=== PATIENT | male | born 1950 | race Caucasian/White ===

== ENCOUNTER 2016-12-29 08:03 | Emergency (ER) | payer OTHER ==
--- NOTE | 2016-12-29 08:09 | UCPHY ---
H & P Patient Type: New HPI/ROS: HPI CHIEF COMPLAINT: Cough, congestion, wheezing HISTORY OF PRESENT ILLNESS: This patient very pleasant 66-year-old male significant past medical history for asthma, presents to the urgent care by private vehicle for shortness of breath cough, congestion, and wheezing. Patient tells me that the past week he has been sick with chills, productive cough with green sputum and wheezing is worse at night. He has significant past medical history for asthma however has never been intubated does not wear oxygen. Does not smoke. Tells me he has had intermittent nights over the past week he has done okay but persistently having a cough and now it is change productive. Denies any fever last 48 hours. Past Medical History: Asthma Past Surgical History: Denies significant surgical history Social History: Denies daily use drugs alcohol tobacco products Family History: Noncontributory ROS REVIEW OF SYSTEMS: A comprehensive 10 point review of systems is otherwise negative aside from elements mentioned in the history of present illness. Exam Constitutional appears well, nontoxic no distress, triage nursing summary reviewed, vital signs reviewed, awake/alert. Eyes normal conjunctivae and sclera, EOMI, PERRLA. HENT normal inspection, atraumatic, moist mucus membranes, no epistaxis, neck supple/ no meningismus, no raccoon eyes. Respiratory decreased breath sounds bilaterally, bronchitic sounding cough, wheezing bilaterally, no rhonchi or crackles , no distress, no tachypnea Cardiovascular rate normal, regular rhythm, no murmur, no edema, distal pulses normal. Gastrointestinal soft, non-tender, no rebound, no guarding, normal bowel sounds, no distension, no pulsatile mass. Genitourinary no CVA tenderness. Musculoskeletal no midline vertebral tenderness, full range of motion, no calf swelling, no tenderness of extremities, no meningismus, good pulses, neurovascularly intact. Skin pink, warm, & dry, no rash, skin atraumatic. Neurologic awake, alert and oriented x 3, AAOx3, moves all 4 extremities equally, motor intact, sensory intact, CN II-XII intact, normal cerebellar, normal vision, normal speech. Psychiatric normal mood/affect. Heme/Lymph/Immune no lymphadenopathy. Differential Diagnosis:Includes includes but is not limited to in a particular order, acute bronchitis, asthma exacerbation, pneumonia, pneumothorax, CHF Medical Decision Making: This patient had a two view chest x-ray to rule out significant pneumonia, patient will receive a DuoNeb breathing treatment and prednisone 60 mg here in the urgent care. I will re-evaluate. Re-evaluation: ED x-ray chest two view: Negative for acute cardiopulmonary disease. Image interpreted myself specifically no focal pneumonia. Time of re-evaluation: 850AM The patient is resting comfortably here, feels much better after DuoNeb breathing treatment. Room air saturation 97% no tachypnea. Wheezing has greatly improved good air movement. He feels comfortable being discharged. Prescription for prednisone, azithromycin, guaifenesin and Parsons for cough. New albuterol inhaler. He understands return to the urgent care or emergency room if develops worsening shortness of breath, wheezing cough congestion high fever vomiting or questions or concerns. Source: Patient - Family History Significant Family History: No pertinent family hx Constitutional: Initial Vital Signs Temperature (C) 36.6 C 12/29/16 08:12 Heart Rate 89 12/29/16 08:12 Respiratory Rate 18 12/29/16 08:12 Blood Pressure 164/86 H 12/29/16 08:12 O2 Sat (%) 92 12/29/16 08:12 O2 Delivery Mode Room Air Allergies/Adverse Reactions: No Known Allergies Allergy (Unverified 12/29/16 08:11) Home Medications: Medication Instructions Recorded AZITHROMYCIN [Z-PACK] 250 mg PO DAILY #6 tab 12/29/16 Albuterol 12/29/16 Albuterol [Proventil Inhaler HFA 1 - 2 puffs IH Q4H #1 mdi 12/29/16 (*)] Alpurnal 12/29/16 Guaifenesin [Guaifenesin ER] 600 mg PO BID #14 tab.er.12h 12/29/16 Hydrocodone/APAP 5/325 [Parsons 1 - 2 tab PO Q4H PRN #10 tab 12/29/16 5/325] Zopinex 12/29/16 predniSONE 60 mg PO DAILY #15 tab 12/29/16 Departure - Departure Disposition: Home, Routine, Self-Care Clinical Impression: Bronchitis Condition: Good Instructions: Asthma (ED), Acute Bronchitis (ED) Additional Instructions: 1. Drink lots of fluids stay well-hydrated 2. return to the urgent care or emergency room if develops worsening shortness of breath, cough, high fever he do not feel well. Referrals: Cristhian Montoya MD [Primary Care Provider] - As per Instructions Prescriptions: Albuterol [Proventil Inhaler HFA (*)] 1 - 2 puffs IH Q4H #1 mdi AZITHROMYCIN [Z-PACK] 250 mg PO DAILY #6 tab Guaifenesin [Guaifenesin ER] 600 mg PO BID #14 tab.er.12h Hydrocodone/APAP 5/325 [Parsons 5/325] 1 - 2 tab PO Q4H PRN #10 tab PRN Reason: Pain, Moderate predniSONE 60 mg PO DAILY #15 tab - PQRS PQRS Measurement: n/a
[2016-12-29 08:15] VITALS: RESP 18; TEMP 98
[2016-12-29] MEDS ORDERED: IPRATROPIUM/ALBUTEROL 3 ML DEYVIAL IH ONE (08:21)
[2016-12-29] MEDS ORDERED: predniSONE 20 MG TAB PO ONE (08:21)
[2016-12-29] MEDS ORDERED: ALBUTEROL 3 ML DEYVIAL ONE (08:57)
[2016-12-29] MEDS ORDERED: ALBUTEROL 3 ML DEYVIAL IH ONE (09:04)
[2016-12-29 09:36] VITALS: BP 124/96; PULSE 95; O2SAT 97
== END 2016-12-29 09:29 | disposition home or self-care (01) ==
LOC: CED 08:03
DX: J40 Bronchitis, not specified as acute or chronic (principal)
CPT/HCPCS: 71020-PO; 99204-PO; G0463-PO

== ENCOUNTER → 2017-08-17 | Outpatient (CLI) | payer MEDICARE, OTHER ==
[~2017-08-17] MED LIST: GADOBUTROL 10 ML VIAL IVP ONE
== END ==
LOC: FIMAGING 07:43
PROVIDERS: ATTEND Family Medicine
DX: R97.20 Elevated prostate specific antigen [PSA] (principal); M25.451 Effusion, right hip; M25.452 Effusion, left hip
CPT/HCPCS: 72197; 76377; A9585

== ENCOUNTER → 2017-09-18 | Outpatient (CLI) | payer OTHER | LOC: FIMAGING 10:01 | PROVIDERS: ATTEND Family Medicine | DX: M48.062 Spinal stenosis, lumbar region with neurogenic claudication (principal); M51.36 Other intervertebral disc degeneration, lumbar region; M46.96 Unspecified inflammatory spondylopathy, lumbar region; M51.35 Other intervertebral disc degeneration, thoracolumbar region; M48.04 Spinal stenosis, thoracic region ==

== ENCOUNTER → 2017-09-25 | Day surgery (SDC) | payer OTHER ==
[~2017-09-25] MED LIST changes: -GADOBUTROL 10 ML VIAL IVP ONE; +IOPAMIDOL (ISOVUE-M 300) 15 ML VIAL ONE; +TRIAMCINOLONE ACETONIDE 200 MG/5 ML MDV IM ONE
--- NOTE | 2017-09-25 17:48 | PDRADPN ---
Radiology Procedure Note Date of Procedure: 09/25/17 Radiologist: Holly Santoyo Anesthesia: Local (Specify) (lidocaine) Pre-op Diagnosis: severe back pain Post-op Diagnosis: same Indication: same Procedure: L3-4 ALEJANDRO Finding(s): reproduction of pain Inf/Abcess present in the surg proc area at time of surgery?: No EBL: Minimal Complications: None
== END | disposition home or self-care (01) ==
LOC: FIMAGING 15:37
PROVIDERS: ATTEND Family Medicine
PROC: 3E0R33Z Introduction of Anti-inflammatory into Spinal Canal, Percutaneous Approach (ICD-10-PCS; principal; 2017-09-25)
PROC: 3E0R3BZ Introduction of Anesthetic Agent into Spinal Canal, Percutaneous Approach (ICD-10-PCS; principal; 2017-09-25)
DX: M54.16 Radiculopathy, lumbar region (principal)
CPT/HCPCS: J3301; Q9967

== ENCOUNTER → 2017-12-26 | Day surgery (SDC) | payer OTHER ==
[~2017-12-26] MED LIST changes: +LIDOCAINE 1% 300 MG/30 ML SDV ONE
== END | disposition home or self-care (01) ==
LOC: FIMAGING 13:46
PROVIDERS: ATTEND Neurological Surgery
DX: M48.062 Spinal stenosis, lumbar region with neurogenic claudication (principal); M54.40 Lumbago with sciatica, unspecified side; M41.26 Other idiopathic scoliosis, lumbar region
CPT/HCPCS: J3301; Q9967

== ENCOUNTER → 2018-01-31 | Outpatient (CLI) | payer OTHER | LOC: FIMAGING 11:52 | PROVIDERS: ATTEND Physical Medicine & Rehabilitation Neuromuscular Medicine | DX: S33.140A Subluxation of L4/L5 lumbar vertebra, initial encounter (principal); M41.56 Other secondary scoliosis, lumbar region ==

== ENCOUNTER 2018-02-05 13:06 | Outpatient (CLI) | payer OTHER ==
[2018-02-05] MEDS ORDERED: DEXAMETHASONE 10 MG/ML VIAL ONE (14:08)
[2018-02-05] MEDS ORDERED: LIDOCAINE 1% 300 MG/30 ML SDV ONE (14:46)
[2018-02-05] MEDS ORDERED: IOPAMIDOL (ISOVUE-M 300) 15 ML VIAL ONE (14:46)
== END 2018-02-05 15:15 | disposition home or self-care (01) ==
LOC: FIMAGING 13:06
PROVIDERS: ATTEND Family Medicine
PROC: 3E0S33Z Introduction of Anti-inflammatory into Epidural Space, Percutaneous Approach (ICD-10-PCS; principal; 2018-02-05)
PROC: 3E0S3BZ Introduction of Anesthetic Agent into Epidural Space, Percutaneous Approach (ICD-10-PCS; principal; 2018-02-05)
PROC: BR19YZZ Fluoroscopy of Lumbar Spine using Other Contrast (ICD-10-PCS; principal; 2018-02-05)
DX: M48.062 Spinal stenosis, lumbar region with neurogenic claudication (principal); M41.26 Other idiopathic scoliosis, lumbar region; M54.40 Lumbago with sciatica, unspecified side
CPT/HCPCS: J1100; Q9967

== ENCOUNTER 2018-07-16 05:44 | Day surgery (SDC) | payer OTHER ==
[2018-07-16] MEDS ORDERED: LR 1,000 ML IV ONE (06:03)
[2018-07-16] MEDS ORDERED: LIDOCAINE 1% 2 ML INJ ID PRN (06:03)
[2018-07-16] MEDS ORDERED: ceFAZolin 2 GM/DEXTROSE 100 ML IV ONE (06:41)
--- NOTE | 2018-07-16 06:46 | SOAPPROG ---
SOAP Progress Note Assessment/Plan: HISTORY AND PHYSICAL: Name ZINA MONTILLA (68yo, M) ID# [id number] 1950 Service Dept. MAIN OFFICE Provider CAMERON TURPIN M.D. Insurance Med Primary: [facility] (MEDICARE REPLACEMENT/ADVANTAGE - HMO) Insurance # : [id number] Policy/Group # : [id number] Prescription: ORX - Member is eligible. details Patient presents today to review his right shoulder MRI to evaluate for concomitant rotator cuff tear. Patient doing well but has constent discomfort in right shoulde. Symptoms have increase in his left shoulder since last visit. Patient's Care Team Primary Care Provider: TORI SULLIVAN DO: [id number] [facility] [address], [place] [address], , Patient's Pharmacies [facility] #[id number] (ERX): [address] [facility] [address], [facility] [id number], Ph , Vitals None recorded. Allergies Reviewed Allergies NKDA Reviewed Medications Advair Diskus 100 mcg-50 mcg/dose powder for inhalation 02/07/17 filled [facility] allopurinol 300 mg tablet 05/24/18 filled [facility] azithromycin 250 mg tablet 12/29/16 filled [facility] celecoxib 200 mg capsule 02/07/17 filled [facility] DEPO-Medrol 40 mg/mL suspension for injection Take 2 mg by injection route. Note: lot#[id number] exp 05/12/2019 bilateral shoulders 03/02/17 administered Marcelo Nolan M.D. Fluzone High-Dose [id number] (PF) 180 mcg/0.5 mL intramuscular syringe 08/15/17 filled [facility] gabapentin 100 mg capsule 10/20/17 filled [facility] HYDROcodone 5 mg-acetaminophen 325 mg tablet 12/20/17 filled [facility] indomethacin 50 mg capsule 05/23/18 filled [facility] levalbuterol HFA 45 mcg/actuation aerosol inhaler 02/07/17 filled [facility] methylPREDNISolone 4 mg tablets in a dose pack 12/21/17 filled [facility] predniSONE 20 mg tablet 09/10/17 filled [facility] traMADol 50 mg tablet Take 1 tablet every 6 hours by oral route as needed for pain 05/31/18 prescribed Cameron Turpin M.D. Ventolin HFA 90 mcg/actuation aerosol inhaler 12/29/16 filled [facility] Viagra 100 mg tablet 02/28/17 filled [facility] None recorded. Problems Reviewed Problems * Bilateral shoulder joint pain Family History Reviewed Family History Social History Reviewed Social History Smoking Status: Never smoker Occupation: retired Chewing tobacco: none Alcohol intake: Occasional Caffeine intake: Moderate Exercise level: Moderate Sporting activities: Hiking, walking, skiing Hand Dominance: Right Education: 4 Year College Live alone or with others?: with others Surgical History Reviewed Surgical History * Orthopaedic Surgery - 11/12/1996 Past Medical History Reviewed Past Medical History Arthritis: Y Asthma: Y Gout: Y Screening None recorded. HPI This is a very pleasant 68 year old male with: -right shoulder end-stage osteoarthritis, AC joint arthritis, RC tendinosis and biceps tendinosis s/p GH injections on 08/20/15, 08/30/16, and 03/02/17 -left shoulder end-stage osteoarthritis and AC joint arthritis s/p GH injections on 08/30/16, 03/02/17 He presents today to discuss the results of his recent right shoulder MRI. ROS ROS as noted in the HPI Physical Exam Patient is a 68-year-old male. Bilateral shoulder examination Inspection/palpation: Right: TTP overlying the AC joint and posterior shoulder Left: TTP overlying the AC joint and posterior shoulder Shoulder ROM (R / L / Normal) Forward flexion: 150 / 150 / 170 Abduction: 130 / 130 / 160 Extension: 20 / 20 / 40 Shoulder strength (R / L / Normal) Deltoid : 5/ 5 / 5 Biceps: 5/ 5 / 5 Shoulder sensory (R / L / Normal) Axillary: + / + / + Shoulder tests Stability tests OBriens: - / - / - Apprehension: - / - / - Relocation: - / - / - Jerk: - / - / - Rotator cuff tests Empty can: - / - / - Belly press: - / - / - Lift off : - / - / - Impingement tests Se: - / - / - Neer: - / - / - Cross-arm adduction: - / - / - Biceps test Speeds: - / - / - Yergason supination: - / - / - Assessment / Plan This is a very pleasant 68 year old male with: -right shoulder end-stage osteoarthritis, AC joint arthritis, RC tendinosis and biceps tendinosis s/p GH injections on 08/20/15, 08/30/16, and 03/02/17 -left shoulder end-stage osteoarthritis and AC joint arthritis s/p GH injections on 08/30/16, 03/02/17 - 05/27/18 - right shoulder MRI -- severe degenerative change in the glenohumeral joint, partial tear distal supraspinatus tendon, moderate tendinopathy intra-articular long head biceps tendon - I have discussed with the patient the risks, benefits, alternatives and complications associated with both non-operative (specifically, observation, NSAIDs, injection) and operative (specifically, right total shoulder arthroplasty, right long head of biceps tenodesis, and possible right shoulder rotator cuff repair) forms of treatment - The patient fully understands the risks, benefits, alternatives, and complications associated with both forms of treatment and wishes to proceed with operative intervention as outlined above - He has signed the informed consent form for surgery and surgery will be scheduled for the near future. 1. Localized, primary osteoarthritis of the shoulder region M19.019: Primary osteoarthritis, unspecified shoulder * SHOULDER ARTHRITIS: EXERCISES * tramadol 50 mg tablet - Take 1 tablet every 6 hours by oral route as needed for pain Qty: 30 tablet(s) Refills: 0 Pharmacy: [facility] #[id number] 2. Shoulder pain - Bilateral M25.512: Pain in left shoulder M25.511: Pain in right shoulder 3. Osteoarthritis of glenohumeral joint M19.019: Primary osteoarthritis, unspecified shoulder MRI, SHOULDER, W/O CONTRAST Side: RIGHT 1. Severe degenerative change in the glenohumeral joint with glenohumeral joint effusion with synovial proliferation and loose bodies. Diffuse labral pathology. 2. Mild tendinopathy and partial tear distal supraspinatus tendon. Mild tendinopathy infraspinatus tendon. Mild subacromial bursitis. 3. Moderate tendinopathy intra-articular long head biceps tendon. 4. Mild tendinopathy distal subscapularis tendon. 5. Moderate degenerative change acromioclavicular joint. Mild anterior curve to the acromion. Anterior ssubacromial spur. Encounter Sign-Off Encounter signed-off by Cameron Turpin M.D. 07/16/18 06:44 07/16/18 06:46 Objective: Vital Signs Temp Pulse Resp BP Pulse Ox 36.8 C 55 L 14 123/71 H 93 07/16/18 06:24 07/16/18 06:24 07/16/18 06:24 07/16/18 06:24 07/16/18 06:24 ICD10 Worksheet Patient Problems: Problems Problem Status Onset Arthritis of right shoulder region Acute - ICD10 Problem Qualifiers (1) Arthritis of right shoulder region
[2018-07-16] MEDS ORDERED: MIDAZOLAM 2 MG/2 ML VIAL IVP ONE (06:47)
--- NOTE | 2018-07-16 06:47 | PDHPUP ---
History & Physical Update H&P update statement: This history and physical update is based on an assessment of the patient which was completed after admission or registration (within 24 hours), but prior to the surgery/procedure. H&P update: H&P reviewed & patient examined, no change in patient's condition since H&P completed
--- NOTE | 2018-07-16 06:47 | PDANEPAE ---
ANE History of Present Illness R total shoulder replacement ANE Past Medical History - Cardiovascular History Hx Hypertension: No Hx Arrhythmias: No Hx Chest Pain: No Hx Coronary Artery / Peripheral Vascular Disease: No Hx CHF / Valvular Disease: No Hx Palpitations: No - Pulmonary History Hx COPD: No Hx Asthma/Reactive Airway Disease: Yes Hx Recent Upper Respiratory Infection: No Hx Oxygen in Use at Home: No Hx Sleep Apnea: No Sleep Apnea Screening Result - Last Documented: Negative Pulmonary History Comment: SEASONAL HAY FEVER - Neurologic History Hx Cerebrovascular Accident: No Hx Seizures: No Hx Dementia: No - Endocrine History Hx Diabetes: No - Renal History Hx Renal Disorders: No - Liver History Hx Hepatic Disorders: No - Neurological & Psychiatric Hx Hx Neurological and Psychiatric Disorders: No - Cancer History Hx Cancer: No - Congenital Disorder History Hx Congenital Disorders: No - Other Health History Other Health History: NEG - Chronic Pain History Chronic Pain: Yes (R SHOULDER & L SHOULDER) - Surgical History Prior Surgeries: RYAN SONDRA. VASECTOMY. TONSILLECTOMY ANE Review of Systems Review of systems is: negative Review of Systems: - Exercise capacity METS (RN): 4 METS ANE Patient History - Allergies Allergies/Adverse Reactions: No Known Allergies Allergy (Verified 07/12/18 12:01) - Home Medications Home medications: home medication list seen and reviewed Home Medications: Allopurinol 300 MG (RX) 300 mg PO DAILY 09/25/17 [Last Taken 07/15/18] Advair 100/50 (*) PRN 12/21/17 [Last Taken 2 Days Ago ~07/14/18] Aspirin 06/03/18 [Last Taken 07/10/18] Herbals/Supplements -Info Only 06/03/18 [Last Taken 07/10/18] - NPO status NPO Since - Liquids (Date): 07/15/18 NPO Since - Liquids (Time): 20:00 NPO Since - Solids (Date): 07/15/18 NPO Since - Solids (Time): 19:00 - Anes Hx Hx Anesthesia Complications (with details): difficult intubation - Smoking Hx Smoking Status: Never smoked - Family Anes Hx Family Anes Hx: none Family Hx Anesthesia Complications: NEG ANE Labs/Vital Signs - Vital Signs Vital Signs: reviewed preoperatively; see RN documention for details Blood Pressure: 123/71 Heart Rate: 55 Respiratory Rate: 14 O2 Sat (%): 93 Height: 167.64 cm Weight: 64.41 kg ANE Physical Exam - Airway Neck exam: decreased ROM Mallampati Score: Class 1 Mouth exam: normal dental/mouth exam - Pulmonary Pulmonary: no respiratory distress - Cardiovascular Cardiovascular: regular rate and rhythym - ASA Status ASA Status: II ANE Anesthesia Plan Anesthesia Plan: GA w LMA Regional Anesthesia: single shot NB, interscalene BP NB
[2018-07-16] MEDS ORDERED: ONDANSETRON 4 MG/2 ML VIAL IVP PRN ×2 (06:53→08:34)
[2018-07-16] MEDS ORDERED: HYDROmorphONE/DILAUDID 1 MG/ML INJ IVP PRN ×2 (06:53→08:34)
[2018-07-16] MEDS ORDERED: LIDOCAINE 1% 300 MG/30 ML SDV ONE (06:54)
[2018-07-16] MEDS ORDERED: BUPIVACAINE/EPI 0.5% 30 ML SDV ONE (06:54)
[2018-07-16] MEDS ORDERED: POLYMYXIN B SULFATE 500,000 UNIT/10 ML SYR IRR ONE (06:55)
[2018-07-16] MEDS ORDERED: BACITRACIN 50,000 UNITS/10 ML SYR IRR ONE (06:55)
[2018-07-16] MEDS ORDERED: ONDANSETRON 4 MG/2 ML VIAL ONE (07:12)
[2018-07-16] MEDS ORDERED: LIDOCAINE 2% 100 MG/5 ML SYR ONE (07:12)
[2018-07-16] MEDS ORDERED: DEXAMETHASONE 4 MG/ML VIAL ONE (07:12)
[2018-07-16] MEDS ORDERED: fentaNYL 100 MCG/2 ML INJ ONE (07:12)
[2018-07-16] MEDS ORDERED: PROPOFOL 200 MG/20 ML VIAL ONE (07:13)
[2018-07-16] MEDS ORDERED: oxyCODONE IR 5 MG TAB PO PRN ×2 (07:19→08:34)
[2018-07-16] MEDS ORDERED: ALBUTEROL 3 ML DEYVIAL IH PRN (08:34)
[2018-07-16] MEDS ORDERED: PROMETHAZINE HCL 25 MG/ML INJ IVP PRN (08:34)
[2018-07-16] MEDS ORDERED: HYDROCODONE/APAP 5/325 TAB PO PRN (08:34)
[2018-07-16] MEDS ORDERED: fentaNYL 100 MCG/2 ML INJ IVP PRN (08:34)
[2018-07-16] MEDS ORDERED: MEPERIDINE 25 MG/0.5 ML AMP IVP PRN (08:34)
[2018-07-16] MEDS ORDERED: LABETALOL HCL 5 MG/ML 20 ML MDV IVP PRN (08:34)
[2018-07-16] MEDS ORDERED: DEXAMETHASONE 4 MG/ML VIAL IVP PRN (08:34)
[2018-07-16] MEDS ORDERED: NALOXONE HCL 0.4 MG/ML INJ IVP PRN (08:34)
[2018-07-16] MEDS ORDERED: ACETAMINOPHEN 500 MG TAB PO PRN (08:34)
--- NOTE | 2018-07-16 08:36 | POSTANESTH ---
Post Anesthetic Evaluation Cardiovascular Status: Normal, Stable, Similar to Pre-Op Cond Respiratory Status: Normal, Stable, Similar to Pre-op Cond. Level of Consciousness/Mental Status: Can Participate in Eval, Mildly Sleepy, Arousable Pain Control: Adequate, Prn Tx Ordered Nausea/Vomiting Control: Adequate, Prn Tx Ordered Complications Possibly Related to Anesthesia: None Noted
[2018-07-16] MEDS ORDERED: PHENYLEPHRINE HCL 100 MCG/ML SYR ONE ×2 (09:53→11:46)
--- NOTE | 2018-07-16 12:22 | POSTOPPROG ---
Post Op Note Date of Operation: 07/16/18 Surgeon: Cameron Turpin Early Childhood Lead Teacher: Janna Watson PA-C Anesthesiologist: Dr. Pinon Anesthesia: GET(General Endotracheal) Pre-op Diagnosis: right shoulder osteoarthritis Post-op Diagnosis: right shoulder osteoarthritis Indication: right shoulder osteoarthritis; pain Procedure: right total shoulder arthroplasty and biceps tenodesis Inf/Abcess present in the surg proc area at time of surgery?: No Depth: Deep Incisional (Fascial) EBL: 50-100
[2018-07-16 13:37] VITALS: BP 108/62
--- NOTE | 2018-07-16 18:58 | GOP ---
NAME: ZINA MONTILLA DATE OF SERVICE: 07/16/18 DATE OF : 1950 SURGEON: Cameron Turpin M.D. [employer] OPERATOR: Janna Watson PA-C Mrs. Sanford assistance was medically necessary for patient positioning and the retraction of vital structures. ANESTHESIA: General / regional PREOPERATIVE DIAGNOSES: Right shoulder arthritis (ICD-10 code M13.819 - shoulder arthritis) Right shoulder partial thickness rotator cuff tear (ICD-10 code M75.110 incomplete rotator cuff tear) Right shoulder biceps tenosynovitis (ICD-10 code M75.20 bicipital tendinitis of shoulder) POSTOPERATIVE DIAGNOSES: Right shoulder arthritis (ICD-10 code M13.819 - shoulder arthritis) Right shoulder partial thickness rotator cuff tear (ICD-10 code M75.110 incomplete rotator cuff tear) Right shoulder biceps tenosynovitis (ICD-10 code M75.20 bicipital tendinitis of shoulder) OPERATIVE PROCEDURES: CPT code 38044 - Right total shoulder arthroplasty CPT code 07383 Right long head of biceps tenotomy CPT code 15611 - Right long head of biceps tenodesis CPT code 52546 - Right open rotator cuff repair, chronic ESTIMATED BLOOD LOSS: 45 ml COMPLICATIONS: None. IMPLANTS: Exactech equinoxe platform stem, 14 mm in diameter with a 4.5-mm replicator plate and a 53mm by 20mm humeral head, Exactech beta pegged all- polyethylene glenoid, simplex bone cement. BRIEF CLINICAL NOTE: This is a very pleasant 68 year old male with a significant history for right shoulder arthritis, long head of biceps tendinitis and partial thickness tearing as well as a partial thickness rotator cuff tear. As such, I have discussed with the patient the risks, benefits, alternatives, and complications associated with both non-operative (specifically , observation, PT, NSAIDs, injections) and operative (specifically, right total shoulder arthroplasty, right long head of biceps tenodesis, and right shoulder rotator cuff repair) forms of treatment. The patient fully understood the risks , benefits, alternatives, and complications associated with both forms of treatment and wished to proceed with operative intervention as outlined above. The patient has signed the informed consent form for surgery. OPERATIVE NOTE: On the day of surgery, all of the patient's questions were answered. The patient was transferred from the pre-operative holding area to the operating room, at which point a formal "time out" procedure was performed. The patient was identified by name, medical record number, social security number, and date of . The patient's right upper extremity was identified as the correct extremity for surgery, with the patients right shoulder being identified as the correct portion of that extremity for surgery. The anesthesia team administered preoperative antibiotics for prophylaxis. [facility] the operating room table and was positioned in the beach chair position. The right upper extremity was then prepped and draped in the normal sterile fashion. A sterile marking pen was utilized to zack out a standard delto-pectoral interval incision. A #15 blade was then used to incise through the skin. Meticulous hemostasis was obtained in the subcutaneous plane. The deltopectoral interval was then developed with careful dissection. The cephalic vein and the deltoid were retracted laterally, and the pectoralis major was retracted medially. The superior 1 cm of the pectoralis was released off of the proximal humerus. The long head of the biceps tendon was identified in the bicipital groove and was traced proximally into the rotator interval. The rotator interval was released and the long head of the biceps tendon was released off of the glenoid (long head of biceps tenotomy) and tagged with an 0-Vicryl suture for later tenodesis. The subscapularis tendon was identified and its superior fibers demonstrated a high-grade partial thickness tear. The torn portion of the subscapularis was tagged with an 0-Vicryl suture. Next, the remainder of the subscapularis was then released off of the lesser tuberosity and tagged with several additional 0- Vicryl sutures for later repair. The humerus was then brought into extension and external rotation and an inferior capsular release was performed. Osteophytes were removed from the head-neck junction with a double action rongeur. The free-hand neck cutting guide was then applied to the anterior aspect of the humerus and the appropriate neck resection angle was marked with bovie cautery. A sagittal saw was then utilized to perform the neck cut. The head was then removed from the wound and measure on the back table at a diameter of 53 mm. The humeral canal was then reamed by hand starting with the 7mm reamer and increasing in 1mm increments up to 14 mm reamer. The last reamer provided for excellent fit within the proximal humeral canal. The proximal humerus was then broached starting with a 10mm broach and increasing 1mm increments up to a 14 mm broach. During broaching, twenty degrees of retroversion was maintained on the humeral side. The 14mm humeral trial was then inserted into the proximal humerus and humeral protection cover was applied to the trial. The humerus was then retracted posteriorly with a Reed retractor to expose the glenoid. A single point glenoid retractor was applied to the anterior aspect of the glenoid to improve exposure. The glenoid labrum was then excised with bovie cautery and the center point of the glenoid was marked with cross hairs. The gliding pilot instructor drill for the modular glenoid reamer was then utilized to drill a gliding pilot instructor hole in the center of the glenoid. The glenoid was then sequentially reamed. The drill guide for an all- polyethylene pegged glenoid component was applied to the reamed glenoid surface and the peripheral peg holes were drilled. The drill guide was then removed and the remaining surface of the reamed glenoid was further prepared by drilling a multitude of small holes. The glenoid was then copiously irrigated with sterile normal saline. A beta sized trial glenoid was then inserted into the glenoid. On the humeral side, a 4.5-mm replicator plate was selected and opened and 53-mm trial head was applied. The shoulder was then brought through a full range of passive motion. In addition, anterior-posterior translation and superior-inferior translation was assessed. All testing demonstrated excellent stability. Taumsbddg-lh-nijwnhuh C-arm images were obtained and demonstrated excellent component positioning. The trial head, the replicator plate, and the trial glenoid were then removed. The glenoid was re-exposed and a Edgar syringe was used to inject simplex bone cement into the glenoid peg holes. A beta sized all-polyethylene pegged glenoid component was then impacted into the glenoid and held in place until the cement was completely hardened. Next, a size 14-mm Exactech equinoxe primary / reverse stem was opened. The trial stem was removed and the proximal humerus was copiously irrigated with pulsatile lavage and then dried with laparotomy spones. Two sets of drill holes were then made along the anterior humeral metaphysis and two #2 Fiber wire sutures were then passed through these drill holes for later subscapularis repair. A donut of simplex bone cement was then applied to the proximal humeral metaphysis only. The 14-mm stem was then inserted with approximately 20 degrees of retroversion. The stem was held in place manually until the cement had completely hardened. All excess cement was carefully removed from the wound. The 4.5-mm replicator plate was then attached to the stem and oriented to provide for maximum coverage. The nut for the replicator plate was then finally tightened using the wrench and the counter-torque device. A 53-mm diameter head component was then opened and applied to the replicator plate with the appropriate positioning to provide for maximum coverage. The head was then impacted onto the Johnson taper. The shoulder was then reduced and brought through a full range of motion. All range of motion testing demonstrated excellent stability. A awkqlpyrr-wf-bwplypaa fluoroscopic image was obtained which demonstrated excellent component positioning. This image was printed and saved. The subscapularis was then repaired utilizing the two #2 Fiberwire sutures which had previously been placed through bone tunnels in the proximal humeral metaphysis. The long head of the biceps tendon was then tenodesed to the undersurface of the pectoralis major utilizing a #2 Fiber wire. The entire wound was then copiously irrigated with sterile normal saline mixed with bacitracin and polymixin. The deep subcutaneous plane was re-approximated with 2-0 vicryl sutures. The deep dermal plane was re-approximated with 3-0 vicryl sutures and the skin was re-approximated with a running 3-0 monocryl subucuticular stitch. The skin was then cleaned with sterile normal saline and dried. Dermabond was applied to the incision. A xeroform gauze dressing was then applied followed by dry sterile dressing and porous tape. Once the dressing was completely in place, the patient was then reversed from anesthesia and transferred from the operating room table onto the post- operative gurney. The operative extremity was placed into a sling. The patient was then transferred from the operating room to the post-anesthesia care unit in stable condition. POSTOPERATIVE PLAN: The patient will leave the current dressing in place and keep the operative extremity clean and dry. The patient will be strict non- weight-bearing on the operative side and will remain in the sling at all times. The patient will follow-up in the office in 2 weeks for a wound check and the initiation of shoulder ROM. /[id number]/MODL MTDD
== END 2018-07-16 13:37 | disposition home or self-care (01) ==
LOC: FSGY 05:44
PROVIDERS: ATTEND Orthopaedic Surgery Hand Surgery
PROC: 0RRJ0JZ Replacement of Right Shoulder Joint with Synthetic Substitute, Open Approach (ICD-10-PCS; principal; 2018-07-16 07:15)
DX: M13.811 Other specified arthritis, right shoulder (principal); M75.111 Incomplete rotator cuff tear or rupture of right shoulder, not specified as traumatic; M75.21 Bicipital tendinitis, right shoulder; Z96.643 Presence of artificial hip joint, bilateral; J45.909 Unspecified asthma, uncomplicated; E78.5 Hyperlipidemia, unspecified
CPT/HCPCS: C1713; J0690; J1100; J2001; J2250; J2370; J2405; J2704; J3010

== ENCOUNTER 2019-02-20 05:47 | Day surgery (SDC) | payer OTHER ==
--- NOTE | 2019-02-19 17:11 | SOAPPROG ---
SOAP Progress Note Assessment/Plan: HISTORY AND PHYSICAL Name ZINA MONTILLA (68yo, M) ID# [id number] 1950 Service Dept. MAIN OFFICE Provider DOROTHY HANNON PA-C Insurance Med Primary: [facility] (MEDICARE REPLACEMENT/ADVANTAGE - HMO) Insurance # : [id number] Policy/Group # : [id number] Prescription: ORX - Member is eligible. details Chief Complaint Pt is here today for his right shoulder recheck. Pt is doing well. Pt is here today for his right shoulder post-op. Pt is doing well PO Right shoulder, doin very well Patient presents today 2 weeks s/p right TSA on 07/16/2018. Patient doing well. Patient's Care Team Primary Care Provider: TORI SULLIVAN DO: [address], [place] [address], , Patient's Pharmacies [facility] #[id number] ([facility]): [address] [facility] [address], [facility] [address], Ph [phone], Vitals None recorded. Allergies Allergies not reviewed (last reviewed 01/08/2019) NKDA Medications Medications not reviewed (last reviewed 01/08/2019) acetaminophen 300 mg-codeine 30 mg tablet 10/07/18 filled [facility] Advair Diskus 100 mcg-50 mcg/dose powder for inhalation 02/07/17 filled [facility] allopurinol 300 mg tablet 11/20/18 filled [facility] amoxicillin 500 mg capsule 10/07/18 filled [facility] azithromycin 250 mg tablet 12/29/16 filled [facility] celecoxib 200 mg capsule 02/07/17 filled [facility] chlorhexidine gluconate 0.12 % mouthwash 10/07/18 filled [facility] DEPO-Medrol 40 mg/mL suspension for injection Take 2 mg by injection route. Note: lot#[id number] exp 05/12/2019 bilateral shoulders 03/02/17 administered Marcelo Nolan M.D. Fluzone High-Dose [id number] (PF) 180 mcg/0.5 mL intramuscular syringe 08/15/17 filled [facility] gabapentin 100 mg capsule 10/20/17 filled [facility] HYDROcodone 5 mg-acetaminophen 325 mg tablet 12/20/17 filled [facility] indomethacin 25 mg capsule Take 1 capsule(s) twice a day by oral route. 10/09/18 filled [facility] indomethacin 50 mg capsule Take 1 capsule(s) twice a day by oral route as needed. 01/08/19 filled [facility] levalbuterol HFA 45 mcg/actuation aerosol inhaler 02/07/17 filled [facility] methylPREDNISolone 4 mg tablets in a dose pack 12/21/17 filled [facility] oxyCODONE 5 mg tablet Take 1 tablet(s) every 4 hours by oral route as needed. 08/02/18 filled [facility] oxyCODONE 5 mg tablet,oral ONLY (not feeding tubes) Take 1 tablet(s) every 4 hours by oral route as needed. 07/22/18 prescribed DOROTHY HANNON PA-C predniSONE 20 mg tablet 09/10/17 filled [facility] Shingrix (PF) 50 mcg/0.5 mL intramuscular suspension, kit 12/25/18 filled [facility] traMADol 50 mg tablet Take 1 tablet every 6 hours by oral route as needed for pain 01/10/19 filled [facility] Ventolin HFA 90 mcg/actuation aerosol inhaler 12/29/16 filled [facility] Viagra 100 mg tablet 02/28/17 filled [facility] Vaccines None recorded. Problems Reviewed Problems Osteoarthritis of glenohumeral joint - Onset: 07/31/2018, Bilateral Bilateral shoulder joint pain Family History Family History not reviewed (last reviewed 01/08/2019) Social History Social History not reviewed (last reviewed 01/08/2019) Smoking Status: Never smoker Occupation: retired Chewing tobacco: none Alcohol intake: Occasional Caffeine intake: Moderate Exercise level: Moderate Sporting activities: Hiking, walking, skiing Hand Dominance: Right Education: 4 Year College Live alone or with others?: with others Surgical History Surgical History not reviewed (last reviewed 01/08/2019) Total shoulder arthroplasty (surg) - 07/16/2018 Orthopaedic Surgery - 11/12/1996 Past Medical History Past Medical History not reviewed (last reviewed 01/08/2019) Arthritis: Y Asthma: Y Gout: Y Screening None recorded. HPI This is a very pleasant 68 year old male with: -right shoulder end-stage osteoarthritis, AC joint arthritis, RC tendinosis and biceps tendinosis s/p GH injections on 08/20/15, 08/30/16, and 03/02/17 -left shoulder end-stage osteoarthritis and AC joint arthritis s/p GH injections on 08/30/16, 03/02/17 - 05/27/18 - right shoulder MRI -- severe degenerative change in the glenohumeral joint, partial tear distal supraspinatus tendon, moderate tendinopathy intra-articular long head biceps tendon - 07/16/18 -- Right total shoulder arthroplasty, right long head of biceps tenodesis, and right open RCR - 01/10/19 -- left shoulder MRI -- severe degenerative changes in the glenohumeral joint, partial tear distal supraspinatus, partial tear of biceps tendon He presents today for a routine follow up and reports that his right shoulder is doing great. His left shoulder pain is not improving and would like to discuss his treatment options. His left shoulder MRI is ready to review. ROS ROS as noted in the HPI Physical Exam Patient is a 68-year-old male. Bilateral shoulder examination Inspection/palpation: Right: Nicely healed deltopectoral incision Left: TTP overlying the AC joint and posterior shoulder Shoulder ROM (R / L / Normal) Forward flexion: 170 active / 170 / 170 Abduction: 160 active / 160 / 160 Extension: 40 / 40 / 40 Shoulder strength (R / L / Normal) Deltoid : 3 / 4 / 5 Biceps: 3 / 4 / 5 Shoulder sensory (R / L / Normal) Axillary: + / + / + Shoulder tests Stability tests OBriens: - / + / - Apprehension: - / - / - Relocation: - / - / - Jerk: - / - / - Rotator cuff tests Empty can: - / + / - Belly press: + / - / - Lift off : - / - / - Impingement tests Se: - / + / - Neer: - / + / - Cross-arm adduction: - / + / - Biceps test Speeds: - / + / - Yergason supination: - / + / - Assessment / Plan This is a very pleasant 68 year old male with: -right shoulder end-stage osteoarthritis, AC joint arthritis, RC tendinosis and biceps tendinosis s/p GH injections on 08/20/15, 08/30/16, and 03/02/17 -left shoulder end-stage osteoarthritis and AC joint arthritis s/p GH injections on 08/30/16, 03/02/17 - 05/27/18 - right shoulder MRI -- severe degenerative change in the glenohumeral joint, partial tear distal supraspinatus tendon, moderate tendinopathy intra-articular long head biceps tendon - 07/16/18 -- Right total shoulder arthroplasty, right long head of biceps tenodesis, and right open RCR - 01/10/19 -- left shoulder MRI -- severe degenerative changes in the glenohumeral joint, partial tear distal supraspinatus, partial tear of biceps tendon For the right shoulder: -Continue HEP and PT for right shoulder ROM until MMI -Continue WBAT RUE -FU in 6 months for repeat right shoulder xrays (AP, Y, axillary) For the left shoulder: - I have discussed with the patient the risks, benefits, alternatives and complications associated with non-operative (specifically, observation, activity modifications,NSAIDs, injection) and operative (specifically, left total shoulder arthroplasty, possible RCR repair and/or debridement, and long head biceps tenotomy and tenodesis) forms of treatment. - The patient fully understands the risks, benefits, alternatives, and complications associated with these forms of treatment and wishes to proceed with surgery. - He has signed the informed consent form for surgery and surgery will be scheduled for the near future. 1. Shoulder pain M25.519: Pain in unspecified shoulder 2. History of total arthroplasty of right shoulder joint Z96.611: Presence of right artificial shoulder joint 3. Surgical follow-up Z09: Encounter for follow-up examination after completed treatment for conditions other than malignant neoplasm 4. Osteoarthritis of glenohumeral joint - Bilateral M19.011: Primary osteoarthritis, right shoulder Return to Office None recorded. Encounter Sign-Off Encounter signed-off by DOROTHY HANNON PA-C, 02/19/19 17:11 ICD10 Worksheet Patient Problems: Problems Problem Status Onset Arthritis of right shoulder region Acute
[2019-02-20] MEDS ORDERED: LR 1,000 ML IV ONE (06:03)
[2019-02-20] MEDS ORDERED: BUPIVACAINE/EPI 0.5% 30 ML SDV ONE (06:47)
[2019-02-20] MEDS ORDERED: BACITRACIN 50,000 UNITS/10 ML SYR IRR ONE (06:48)
[2019-02-20] MEDS ORDERED: CEFAZOLIN 2 GM/DEXTROSE/100 ML BAG IV ONE (06:48)
[2019-02-20] MEDS ORDERED: POLYMYXIN B SULFATE 500,000 UNIT/10 ML SYR IRR ONE (06:48)
[2019-02-20] MEDS ORDERED: ceFAZolin 2 GM/DEXTROSE 100 ML IV ONE (06:49)
--- NOTE | 2019-02-20 06:50 | PDHPUP ---
History & Physical Update H&P update statement: This history and physical update is based on an assessment of the patient which was completed after admission or registration (within 24 hours), but prior to the surgery/procedure. H&P update: H&P reviewed & patient examined
--- NOTE | 2019-02-20 06:55 | PDANEPAE ---
ANE Past Medical History - Cardiovascular History Hx Hypertension: No Hx Arrhythmias: No Hx Chest Pain: No Hx Coronary Artery / Peripheral Vascular Disease: No Hx CHF / Valvular Disease: No Hx Palpitations: No - Pulmonary History Hx COPD: No Hx Asthma/Reactive Airway Disease: Yes Hx Recent Upper Respiratory Infection: No Hx Oxygen in Use at Home: No Hx Sleep Apnea: No Sleep Apnea Screening Result - Last Documented: Negative Pulmonary History Comment: EXERCISE INDUCED ASTHMA. SEASONAL HAY FEVER - Neurologic History Hx Cerebrovascular Accident: No Hx Seizures: No Hx Dementia: No - Endocrine History Hx Diabetes: No - Renal History Hx Renal Disorders: No - Liver History Hx Hepatic Disorders: No - Neurological & Psychiatric Hx Hx Neurological and Psychiatric Disorders: No - Cancer History Hx Cancer: No - Congenital Disorder History Hx Congenital Disorders: No - GI History Hx Gastrointestinal Disorders: No - Other Health History Other Health History: NEG - Chronic Pain History Chronic Pain: Yes (LT SHLDR) - Surgical History Prior Surgeries: RT TOTAL SHLDR. RYAN SONDRA. VASECTOMY. TONSILLECTOMY ANE Review of Systems Review of Systems: - Exercise capacity METS (RN): 4 METS ANE Patient History - Allergies Allergies/Adverse Reactions: No Known Allergies Allergy (Verified 07/12/18 12:01) - Home Medications Home Medications: Allopurinol 300 MG (RX) 300 mg PO DAILY 09/25/17 [Last Taken 02/19/19 09:00] Advair 100/50 (*) IH PRN 12/21/17 [Last Taken 02/20/19 05:00] Xopenex Hfa PRN 02/04/19 [Last Taken 02/20/19 05:00] Indomethacin 02/20/19 [Last Taken 02/10/19] - NPO status NPO Since - Liquids (Date): 02/19/19 NPO Since - Liquids (Time): 21:30 NPO Since - Solids (Date): 02/19/19 NPO Since - Solids (Time): 17:30 - Anes Hx Hx Anesthesia Complications (with details): h/o difficult intubation, small mouth opening - Smoking Hx Smoking Status: Never smoked - Family Anes Hx Family Hx Anesthesia Complications: NEG ANE Labs/Vital Signs - Vital Signs Blood Pressure: 152/89 Heart Rate: 68 Respiratory Rate: 18 O2 Sat (%): 96 Height: 168.91 cm Weight: 64.864 kg ANE Physical Exam - Airway Mallampati Score: Class 2 Mouth exam: small mouth opening - ASA Status ASA Status: II ANE Anesthesia Plan Anesthesia Plan: GA w LMA Regional Anesthesia: interscalene BP NB
[2019-02-20] MEDS ORDERED: MIDAZOLAM 2 MG/2 ML VIAL ONE (07:04)
[2019-02-20] MEDS ORDERED: fentaNYL 100 MCG/2 ML INJ ONE (07:04)
[2019-02-20] MEDS ORDERED: PROPOFOL 200 MG/20 ML VIAL ONE (07:04)
[2019-02-20] MEDS ORDERED: ROPIVACAINE HCL 150 MG/30 ML INJ ONE (07:10)
[2019-02-20] MEDS ORDERED: METOCLOPRAMIDE 10 MG/2 ML VIAL ONE (07:10)
[2019-02-20] MEDS ORDERED: LIDOCAINE 2% 5 ML SDV ONE (07:10)
[2019-02-20] MEDS ORDERED: ONDANSETRON 4 MG/2 ML VIAL ONE (07:10)
[2019-02-20] MEDS ORDERED: LIDOCAINE 2% JELLY 6 ML TOPICAL SYR ONE (07:35)
[2019-02-20] MEDS ORDERED: ePHEDrine SULFATE 25 MG/5 ML SYR ONE (09:59)
[2019-02-20] MEDS ORDERED: HYDROGEN PEROXIDE 236 ML BOTTLE TP ONE ×2 (10:34→11:30)
[2019-02-20] MEDS ORDERED: NALOXONE HCL 0.4 MG/ML INJ IVP PRN (11:34)
[2019-02-20] MEDS ORDERED: ACETAMINOPHEN 500 MG TAB PO PRN (11:34)
[2019-02-20] MEDS ORDERED: PROMETHAZINE HCL 25 MG/ML INJ IVP PRN (11:34)
[2019-02-20] MEDS ORDERED: MEPERIDINE 25 MG/0.5 ML AMP IVP PRN (11:34)
[2019-02-20] MEDS ORDERED: ONDANSETRON 4 MG/2 ML VIAL IVP PRN (11:34)
[2019-02-20] MEDS ORDERED: LR 500 ML IV PRN (11:34)
[2019-02-20] MEDS ORDERED: fentaNYL 100 MCG/2 ML INJ IVP PRN (11:34)
--- NOTE | 2019-02-20 11:35 | POSTANESTH ---
Post Anesthetic Evaluation Cardiovascular Status: Normal, Stable Respiratory Status: Normal, Stable Level of Consciousness/Mental Status: Can Participate in Eval Pain Control: Adequate, Prn Tx Ordered Nausea/Vomiting Control: Adequate, Prn Tx Ordered Complications Possibly Related to Anesthesia: None Noted
[2019-02-20 14:11] VITALS: BP 140/73
--- NOTE | 2019-02-23 01:45 | GOP ---
[f rep st] OPERATIVE REPORT DATE OF OPERATION: 02/20/2019 SURGEON: Cameron Turpin MD STITCHDOWN TOE FORMER: Janna Guevara PA-C. PREOPERATIVE DIAGNOSIS: 1. Left shoulder arthritis. 2. Left shoulder long head of biceps . 3. Left shoulder partial rotator cuff tear. POSTOPERATIVE DIAGNOSIS: PROCEDURE PERFORMED: 1. Left total shoulder arthroplasty. 2. Left shoulder long head of biceps tenodesis. 3. Shoulder rotator cuff repair. FINDINGS: ESTIMATED BLOOD LOSS: 25 cc. DESCRIPTION OF PROCEDURE: This is a very pleasant 68-year-old male who underwent a left total should er arthroplasty with rotator cuff repair and long head of biceps tenodesis. COMPLICATIONS: None. IMPLANTS: Exactech 50 mm head, Ex[employer]ech 4.5 mm replicator plate, Exactech equinox 12 mm primary pres s-fit stem, Ex[employer]ech all-polyethylene beta glenoid, simplex bone cement. /[id number]/MODL
== END 2019-02-20 14:11 | disposition home or self-care (01) ==
LOC: FSGY 05:47 → EDSTATUS 07:15 → FSGY 14:11
PROVIDERS: ATTEND Orthopaedic Surgery Hand Surgery
PROC: 0RRK0JZ Replacement of Left Shoulder Joint with Synthetic Substitute, Open Approach (ICD-10-PCS; principal; 2019-02-20 07:15)
PROC: 0LQ20ZZ Repair Left Shoulder Tendon, Open Approach (ICD-10-PCS; principal; 2019-02-20 07:15)
PROC: 0LS20ZZ Reposition Left Shoulder Tendon, Open Approach (ICD-10-PCS; principal; 2019-02-20 07:15)
DX: M19.012 Primary osteoarthritis, left shoulder (principal); M67.814 Other specified disorders of tendon, left shoulder; M75.112 Incomplete rotator cuff tear or rupture of left shoulder, not specified as traumatic; Z96.611 Presence of right artificial shoulder joint
CPT/HCPCS: C1713; J0690; J2250; J2405; J2704; J2765; J2795; J3010